=== PATIENT | female | born 1960 | race Caucasian/White ===

== ENCOUNTER 2021-11-10 15:01 | Outpatient (CLI) | payer OTHER ==
[~2021-11-10 15:01] MED LIST: Magnevist 469MG/ML 20 ML VIAL ONE
== END 2021-11-10 15:02 | disposition home or self-care (01) ==
LOC: CSHMRI 15:01
PROVIDERS: ATTEND Family Medicine
DX: D49.7 Neoplasm of unspecified behavior of endocrine glands and other parts of nervous system (principal)
CPT/HCPCS: 70553; A9579